=== PATIENT | male | born 1965 | race Caucasian/White ===

== ENCOUNTER 2017-05-18 14:06 | Day surgery (SDC) | payer MEDICAID ==
[2017-05-16 11:06] LABS: BASOPHILS # (AUTO) 0.1 X10'3 (0-0.2); BASOPHILS % (AUTO) 1.1 % (0-1); EOSINOPHILS # (AUTO) 0.7 X10'3 (0-0.9); HEMATOCRIT 44.5 % (42.0-52.0); HEMOGLOBIN 15.5 g/dl (14.0-17.9); LYMPHOCYTES # (AUTO) 1.7 X10'3 (1.1-4.8); LYMPHOCYTES % (AUTO) 27.2 % (21-51); MEAN CORPUSCULAR HEMOGLOBIN 33.3 PG (27.0-31.0); MEAN CORPUSCULAR HGB CONC 34.8 % (33.0-36.5); MEAN CORPUSCULAR VOLUME 95.4 FL (78-98); MEAN PLATELET VOLUME 7.5 FL (7.4-10.4); MONOCYTES # (AUTO) 0.7 X10'3 (0-0.9); MONOCYTES % (AUTO) 10.7 % (2-12); NEUTROPHILS # (AUTO) 3.1 X10'3 (1.8-7.7); PLATELET COUNT 220 X10'3 (140-440); RED BLOOD COUNT 4.66 X10'6 (4.70-6.10); RED CELL DISTRIBUTION WIDTH 13.2 % (11.5-14.5); WHITE BLOOD COUNT 6.2 X10'3 (4.5-11.0)
[2017-05-16 11:17] LABS: PARTIAL THROMBOPLASTIN TIME 26 SECONDS (22-32); PROTHROMBIN TIME 10.4 SECONDS (9.0-12.0)
[2017-05-16 11:19] LABS: ALBUMIN 3.9 G/DL (3.4-5.0); ANION GAP 5 (8-16); BLOOD UREA NITROGEN 5 MG/DL (7-18); BUN/CREATININE RATIO 6.3 (5.4-32.0); CALCIUM 9.3 MG/DL (8.5-10.1); CHLORIDE 103 MMOL/L (99-107); GLUCOSE 135 MG/DL (70-104); SODIUM 138 MMOL/L (135-145); TOTAL CARBON DIOXIDE 30.1 MMOL/L (24-32); eGFR > 90 ML/MIN
[~2017-05-18] VITALS: Ht 185.4 cm; Wt 66.0 kg
[~2017-05-18 14:06] MED LIST: ASPI-1265 PO; ATOR10TA87 PO; CLOP75TA35 PO; COR3.125T PO; DOCU250C4 PO; NITR0.4T51 SL; ZES10T PO; invega sustenna SQ
[2017-05-18] MEDS ORDERED: LORazepam 0.5 MG tablet PO PRN (14:35)
[2017-05-18] MEDS ORDERED: normal saline 1000ml 1,000 ML IV SCH (14:35)
[2017-05-18] MEDS ORDERED: diphenhydrAMINE 25mg capsule PO PRN (14:35)
[2017-05-18 14:40] VITALS: BP 116/66
[2017-05-18] MEDS ORDERED: midazolam 2 mg/2 ml injection ONE (16:33)
[2017-05-18] MEDS ORDERED: fentaNYL/PF 50MCG/1 ML 2ML syringe ONE (16:33)
[2017-05-18] MEDS ORDERED: iohexol 350MG/ML 100ml bottle IV ONE (16:33)
[2017-05-18] MEDS ORDERED: LIDOcaine 1%/PF (10mg/ml) 5ml vial ONE (16:33)
[2017-05-18 17:30] VITALS: BP 126/69
[2017-05-18] MEDS ORDERED: HYDROcodone/acetaminophen 5mg/325mg tablet PO PRN (17:40)
[2017-05-18] MEDS ORDERED: OXAZEpam 15mg capsule PO PRN (17:40)
[2017-05-18] MEDS ORDERED: HYDROcodone/acetaminophen 10/325mg tab PO PRN (17:40)
[2017-05-18] MEDS ORDERED: proCHLORperazine 10 MG/2 ml inj IV PRN (17:40)
[2017-05-18] MEDS ORDERED: ondansetron/PF 4mg/2ml inj IV PRN (17:40)
[2017-05-18 17:45] VITALS: BP 148/76
[2017-05-18 18:00] VITALS: BP 138/79
[2017-05-18 19:00] VITALS: BP 114/63
== END 2017-05-18 19:40 | disposition home or self-care (01) ==
LOC: SSTAY O 14:06
PROVIDERS: ATTEND Internal Medicine Interventional Cardiology
DX: I25.10 Atherosclerotic heart disease of native coronary artery without angina pectoris (principal); F17.210 Nicotine dependence, cigarettes, uncomplicated; Z72.89 Other problems related to lifestyle; I73.9 Peripheral vascular disease, unspecified; I11.0 Hypertensive heart disease with heart failure; I50.9 Heart failure, unspecified; F20.9 Schizophrenia, unspecified; Z79.82 Long term (current) use of aspirin; Z95.820 Peripheral vascular angioplasty status with implants and grafts; Z95.5 Presence of coronary angioplasty implant and graft
CPT/HCPCS: 36415; 80048; 85025; 85610; 85730; 93005; 93458; A6257; C1769; J1644; J2001; J2250; J3010; J7030; Q0163; Q9967; 99152; A4620